=== PATIENT | male | born 1980 | race Caucasian/White ===

== ENCOUNTER 2019-01-28 15:09 | Emergency (ER) | payer MEDICAID ==
[~2019-01-28] VITALS: Ht 182.9 cm; Wt 154.7 kg
[2019-01-28 15:19] VITALS: BP 154/82; Ht 182.9 cm; Wt 154.7 kg
== END 2019-01-28 16:57 | disposition home or self-care (01) ==
LOC: ED 15:09
DX: S61.411A Laceration without foreign body of right hand, initial encounter (principal); S63.91XA Sprain of unspecified part of right wrist and hand, initial encounter; Z90.49 Acquired absence of other specified parts of digestive tract; W22.8XXA Striking against or struck by other objects, initial encounter; Y93.89 Activity, other specified; Y92.89 Other specified places as the place of occurrence of the external cause; Y99.8 Other external cause status
CPT/HCPCS: 90715; A4570

== ENCOUNTER 2019-07-17 11:34 | Emergency (ER) | payer OTHER ==
[~2019-07-17] VITALS: Ht 177.8 cm; Wt 151.5 kg
[2019-07-17 11:50] VITALS: BP 155/61; Ht 177.8 cm; Wt 151.5 kg
== END 2019-07-17 14:30 | disposition home or self-care (01) ==
LOC: ED 11:34
DX: M25.561 Pain in right knee (principal); R22.41 Localized swelling, mass and lump, right lower limb; Z88.5 Allergy status to narcotic agent

== ENCOUNTER 2020-09-07 08:07 | Emergency (ER) | payer OTHER ==
[~2020-09-07] VITALS: Ht 182.9 cm; Wt 151.5 kg
[2020-09-07 08:15] VITALS: Ht 182.9 cm; Wt 151.5 kg
[2020-09-07 09:38] VITALS: BP 141/88
== END 2020-09-07 12:01 | disposition home or self-care (01) ==
LOC: ED 08:07
DX: G40.909 Epilepsy, unspecified, not intractable, without status epilepticus (principal); Z88.5 Allergy status to narcotic agent; Z98.890 Other specified postprocedural states